=== PATIENT | female | born 1955 | race Caucasian/White ===

== ENCOUNTER → 2020-11-26 07:40 | Outpatient (CLI) | payer OTHER, SELFPAY ==
--- NOTE | 2020-11-26 07:43 | DI.NM.S_ITS ---
PROCEDURE: NM ELENA PERF SPECT REST & STR Rest and exercise myocardial perfusion SPECT with gated imaging and ejection fraction RADIOPHARMACEUTICAL: 10.4 mCi Tc-99m sestamibi IV at rest and 27.5 mCi Tc-99m sestamibi IV at peak exercise. A [id number] was performed. INDICATIONS: Chest pain, unspecified TECHNIQUE: Radiopharmaceutical was injected at peak stress test, and also at rest. SPECT images were obtained. SPECT myocardial perfusion images were displayed in short axis, horizontal long axis, and vertical long axis views. Gated images were reviewed using [employer] software. COMPARISON: None. CARDIAC STRESS: A standard Jason treadmill exercise tolerance test was performed by the patient under the supervision of an attending staff. The patient exercised for 10 minutes and 49 seconds; functional aerobic impairment (BRENT) is -61%; 12.8 METS. Hemodynamic data: There is normal blood pressure and heart rate response to exercise stress. Patient achieved 89% of maximum predicted heart rate at peak exercise. Peak blood pressure 220/90. Symptoms: Patient developed 0.5/10 that increased to 1/10 chest pain during exercise. EKG: No diagnostic EKG changes of ischemia; no ectopy. FINDINGS: Raw data: There is good myocardial labeling by radiotracer. No significant motion artifacts. Htsd-yd-kskhc ratio is 0.36 (normal is less than 0.38 for sestamibi tracer, and less than 0.50 for thallium tracer). Left ventricle function: Gated images demonstrate normal left ventricle wall thickening. No segmental wall motion abnormality. No transient ischemic dilation; TID is 0.92 (normal less than 1.3). The left ventricle resting end-diastolic volume is 75 mL. Left ventricle stress ejection fraction is > 75%; normal values are above 45%. Myocardial perfusion: There is a small size, very mild distal anteroapical resting defect that resolves with stress consistent with shifting breast attenuation. No fixed or reversible perfusion defects. IMPRESSION: 1. No evidence of exercise induced ischemia or arrhythmia by myocardial perfusion imaging or ECG criteria. 2. Excellent exercise capacity. 3. Hypertensive response to exercise. Dictated by: Rizwana Begum D.O. on 11/26/2020 at 15:49 Approved by: Rizwana Begum M.D. on 11/26/2020 at 15:56
[2020-11-26 09:10] LABS: COVID19 -Nasal RAPID Negative (Negative)
== END ==
PROVIDERS: Referring Provider Internal Medicine Cardiovascular Disease; Visit Provider Internal Medicine Cardiovascular Disease
DX: R07.9 Chest pain, unspecified (principal); Z20.822 Contact with and (suspected) exposure to COVID-19
CPT/HCPCS: 78452; 87635

== ENCOUNTER → 2023-07-06 08:40 | Outpatient (CLI) | payer MEDICARE, OTHER, SELFPAY ==
[2023-07-06 09:31] LABS: Hematocrit 42.5 % (36-46); Hemoglobin 14.4 g/dL (12.0-16.0); Mean Corpuscular HGB Conc 33.8 % (30-36); Mean Corpuscular Hemoglobin 29.3 PG (26-34); Mean Corpuscular Volume 86.7 fL (80-100); Platelet Count 268 X10^3/uL (150-400); Red Cell Distribution Width 13.3 % (11.6-14.8); White Blood Cell Count 5.6 X10^3/uL (4.5-11.0)
[2023-07-06 14:17] LABS: Alanine Aminotransferase 22 IU/L (<35); Albumin 4.1 g/dL (3.5-5.0); Albumin Globulin Ratio 1.5 (1.0-2.8); Alkaline Phosphatase 52 U/L (38-126); Aspartate Aminotransferase 29 IU/L (14-36); BUN Creatinine Ratio 23.6 (6-22); Bilirubin Total 0.7 mg/dL (0.2-1.3); Blood Urea Nitrogen 17 mg/dL (7-17); Calcium 9.1 mg/dL (8.4-10.2); Carbon Dioxide 32 mmol/L (22-32); Chloride 103 mmol/L (98-107); Cholesterol 239 mg/dL (140-199); Estimated Glomerular Filt Rate > 60 mL/min (>60); Globulin 2.7 g/dL (1.7-4.1); Glucose 105 mg/dL (80-110); HDL Cholesterol 52 mg/dL (40-60); HEMOLYSIS < 15 (0-50); LDL Cholesterol Calculated 166 mg/dL (<100); Potassium 4.5 mmol/L (3.4-5.1); Sodium 138 mmol/L (137-145); Total Protein 6.8 g/dL (6.3-8.2); Triglycerides 106 mg/dL (35-150)
[2023-07-06 15:34] LABS: TSH w/ Reflex to FT4 2.34 uIU/mL (0.47-4.68)
== END ==
PROVIDERS: PCP Registered Nurse Diabetes Educator; Referring Provider Registered Nurse Diabetes Educator; Visit Provider Registered Nurse Diabetes Educator
DX: I10 Essential (primary) hypertension (principal); E78.5 Hyperlipidemia, unspecified
CPT/HCPCS: 36415; 80053; 80061; 84443; 85027

== ENCOUNTER → 2023-07-30 10:15 | Outpatient (CLI) | payer MEDICARE, OTHER, SELFPAY ==
--- NOTE | 2023-07-30 10:17 | DI.RAD.S_ITS ---
PROCEDURE: XR DEXA AXIAL SKELETON INDICATIONS: ASYMPTOMATIC MENOPAUSAL STATE COMPARISON: None. FINDINGS: Lumbar Spine: Bone mineral density 0.836 g/cm2, T score -1.9. Left Hip: Bone mineral density 0.849 g/cm2, T score -0.8. Left Femoral Neck: Bone mineral density 0.666 g/cm2, T score -1.6. Right Hip: Bone mineral density 0.774 g/cm2, T score -1.4. Right Femoral Neck: Bone mineral density 0.671 g/cm2, T score -1.6. Fracture Risk Calculation (when applicable): 10-year fracture risk of a major osteoporotic fracture 9.5% and of a hip fracture 1.1%. (T score greater or equal to -1.0 to: NORMAL) (T score from -1.1 to -2.4: OSTEOPENIA) (T score less than or equal to -2.5: OSTEOPOROSIS) IMPRESSION: Osteopenia. Follow-up guidelines as follows: Osteoporosis: Consider a repeat DEXA and Vertebral Fracture Assessment (VFA) exam in 2 years or sooner if medically necessary, to reassess this patient's status. Osteopenia: Consider a repeat DEXA in 2-3 years to reassess this patient's status, or if there is a new clinical indication. Normal: Consider a repeat DEXA in 5 years or sooner, or if there is a new clinical indication. All treatment decisions require clinical judgment and consideration of individual patient factors, including patient preferences, comorbidities, previous drug use, risk factors not captured in the FRAX model (e.g., frailty, falls, vitamin D deficiency, increased bone turnover, interval significant decline in bone density ) and possible under- or over-estimation of fracture risk by FRAX. In addition, the NOF Guide recommends that FDA-approved medical therapies be considered in postmenopausal women and men age >= 50 years with a: * Hip or vertebral (clinical or morphometric) fracture * T-score of <=-2.5 at the spine or hip * Ten-year fracture probability by FRAX of >= 3% for hip fracture or >=20% for major osteoporotic fracture. People with diagnosed cases of osteoporosis or at high risk for fracture should have regular bone mineral density tests. For patients eligible for Medicare, routine testing is allowed once every 2 years. The testing frequency can be increased to one year for patients who have rapidly progressing disease, those who are receiving or discontinuing medical therapy to restore bone mass, or have additional risk factors. Dictated by: Mode Gilbert M.D. on 07/30/2023 at 17:28 Approved by: Mode Gilbert M.D. on 07/30/2023 at 17:29
== END ==
PROVIDERS: PCP Registered Nurse Diabetes Educator; Referring Provider Registered Nurse Diabetes Educator; Visit Provider Registered Nurse Diabetes Educator
DX: M85.89 Other specified disorders of bone density and structure, multiple sites (principal); Z78.0 Asymptomatic menopausal state
CPT/HCPCS: 77080

== ENCOUNTER → 2024-07-08 07:51 | Outpatient (CLI) | payer MEDICARE, OTHER, SELFPAY ==
[2024-07-08 08:42] LABS: Alanine Aminotransferase 22 IU/L (<35); Albumin 4.2 g/dL (3.5-5.0); Albumin Globulin Ratio 1.8 (1.0-2.8); Alkaline Phosphatase 52 U/L (38-126); Aspartate Aminotransferase 27 IU/L (14-36); BUN Creatinine Ratio 21.9 (6-22); Bilirubin Total 0.6 mg/dL (0.2-1.3); Blood Urea Nitrogen 16 mg/dL (7-17); Calcium 9.6 mg/dL (8.4-10.2); Carbon Dioxide 31 mmol/L (22-32); Chloride 102 mmol/L (98-107); Cholesterol 255 mg/dL (140-199); Estimated Glomerular Filt Rate > 60 mL/min (>60); Globulin 2.3 g/dL (1.7-4.1); Glucose 100 mg/dL (70-99); HDL Cholesterol 61 mg/dL (40-60); HEMOLYSIS < 15 (0-50); LDL Cholesterol Calculated 177 mg/dL (<100); Potassium 4.1 mmol/L (3.4-5.1); Sodium 137 mmol/L (137-145); Total Protein 6.5 g/dL (6.3-8.2); Triglycerides 86 mg/dL (35-150)
== END ==
LOC: LAB 07:52
PROVIDERS: PCP Registered Nurse Diabetes Educator; Referring Provider Registered Nurse Diabetes Educator; Visit Provider Registered Nurse Diabetes Educator
DX: E78.5 Hyperlipidemia, unspecified (principal); I10 Essential (primary) hypertension; R73.01 Impaired fasting glucose; Z78.0 Asymptomatic menopausal state
CPT/HCPCS: 36415; 80053; 80061

== ENCOUNTER → 2024-08-07 11:03 | Outpatient (CLI) | payer MEDICARE, OTHER, SELFPAY ==
--- NOTE | 2024-08-07 11:05 | DI.MG.S_ITS ---
MM screening mammo BI: 08/07/2024. BI-RADS: 2 CLINICAL: 68-year old female for bilateral screening mammogram. Tyrer-Cuzick lifetime risk of 12.8%. No personal or first-degree family history of breast cancer. Current reported family history of breast cancer: maternal grandmother and maternal aunt. The patient had a prior right breast biopsy. PRIOR EXAMS 01/01/2023, 10/30/2019. MAMMOGRAPHY TECHNIQUE: 2D and 3D (tomosynthesis) digital mammographic views obtained, with additional images as needed for full coverage. Current study was also evaluated with a Computer Aided Detection (CAD) system. DENSITY C. The breasts are heterogeneously dense, which may obscure small masses. MAMMOGRAPHY FINDINGS Right: Benign-appearing post-surgical changes noted on the right. There are no suspicious masses, calcifications, or other findings in the breast. Left: No suspicious mass, asymmetry, microcalcification, or other abnormality seen. IMPRESSION: Right * No evidence of malignancy with benign findings. Left * No evidence of malignancy. RECOMMENDATIONS Bilateral * Annual screening mammography. OVERALL ASSESSMENT CATEGORY BI-RADS-2: Benign. The [employer] recommends annual screening mammography beginning at age 40 for women with average risk of breast cancer. ELECTRONICALLY SIGNED: Rohan Brenner M.D. on 08/07/2024 at 03:33:28 PM PT Interpreting Station ID: [id number]
== END ==
LOC: MAMMO 11:04
PROVIDERS: PCP Registered Nurse Diabetes Educator; Referring Provider Registered Nurse Diabetes Educator; Visit Provider Registered Nurse Diabetes Educator
DX: Z12.31 Encounter for screening mammogram for malignant neoplasm of breast (principal); Z80.3 Family history of malignant neoplasm of breast; R92.333 Mammographic heterogeneous density, bilateral breasts
CPT/HCPCS: 77063; 77067

== ENCOUNTER 2025-01-14 08:25 | Emergency (ER) | payer MEDICARE, OTHER, SELFPAY ==
[2025-01-14] VITALS (9 sets, daily range): BP systolic 133–148; BP diastolic 53–83; PULSE 52–59; RESP 12–16; TEMP 36.7–36.9; O2SAT 97–100; BMI 23.2
--- NOTE | 2025-01-14 08:41 | EKG_ITS ---
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
--- NOTE | 2025-01-14 08:44 | DI.RAD.S_ITS ---
PROCEDURE: XR CHEST 1V INDICATIONS: fluttering TECHNIQUE: One view of the chest was acquired. COMPARISON: None. FINDINGS: Surgical changes and devices: None. Lungs and pleura: Lungs are clear. No pleural effusions or pneumothorax. Mediastinum: Mediastinal contours appear normal. Heart size is normal. Bones and chest wall: No suspicious bony lesions. Overlying soft tissues appear unremarkable. IMPRESSION: No acute cardiopulmonary abnormality is seen. Dictated by: Derrick Rodriguez M.D. on 01/14/2025 at 9:09 Approved by: Derrick Rodriguez M.D. on 01/14/2025 at 9:09
--- NOTE | 2025-01-14 08:45 | ED.CHESTPAIN ---
HPI - Chest Pain General Chief Complaint: Arrhythmia/Palpitations Stated Complaint: Heart Fluttering, 2 weeks Time Seen by Provider: 01/14/25 08:43 Source: patient, RN notes reviewed and old records reviewed Mode of arrival: Family Vehicle Limitations: no limitations History of Present Illness HPI narrative: 69-year-old female history of hypertension on Micardis and hydrochlorothiazide who presents with complaint of symptoms of her heart fluttering for the last several weeks. She states she has been told she had an irregular heartbeat but not atrial fibrillation in the past. She states she would occasionally feel an extra beat but it has become more persistent. She noticed it more at rest. She states she works out regularly does [employer] has not noticed any difficulty or change during exercise. She notes a little bit of left-sided chest discomfort but states it is worse when she pushes on her chest. She states nothing seems to make her symptoms better or worse. She denies any lightheadedness. She describes possibly some slight fatigue. She denies any nausea or vomiting. No diaphoresis. No other GI or urinary symptoms. No swelling of her extremities. Patient states she tried to set up an appointment with her physician and was directed to the emergency department. She states Micardis and hydrochlorothiazide or her only daily medications she has has a stress test in the past but no other cardiac workup. She has not had any prior surgeries. No tobacco, occasional alcohol, no recreational drugs. Her primary care is Mo Castillo. Related Data Home Medications ?Medication ?Instructions ?Recorded ?Confirmed cholecalciferol (vitamin D3) 50 50 mcg PO DAILY 05/08/23 09/02/24 mcg (2,000 unit) capsule cyanocobalamin (vitamin B-12) 2,500 mcg PO DAILY 05/08/23 09/02/24 2,500 mcg tablet jackie root extract 50 mg tablet mg PO 05/08/23 09/02/24 glucosamine HCl 1,500 mg tablet 1,500 mg PO DAILY 05/08/23 09/02/24 magnesium 250 mg tablet 250 mg PO DAILY 05/08/23 09/02/24 nut.tx.impaired digest fxn 0.09 ea PO 05/08/23 09/02/24 gram-1 kcal/mL oral liquid (Vital High Protein) psyllium husk 0.4 gram capsule 0.4 g PO DAILY 05/08/23 09/02/24 (Daily Fiber) cyclosporine 0.05 % eye drops in a drp EYE-BOTH ONCE PRN 07/15/24 09/02/24 dropperette sodium chloride 5 % eye ointment EYE-BOTH 08/28/24 09/02/24 Previous Rx's ?Medication ?Instructions ?Recorded meclizine 25 mg tablet 25 mg PO TID PRN motion sickness 07/17/23 #30 tabs hydrochlorothiazide 25 mg tablet 25 mg PO DAILY #90 tabs 07/15/24 telmisartan 20 mg tablet 20 mg PO DAILY #90 tabs 07/15/24 clobetasol-emollient 0.05 % 1 applic topical BID 2 weeks #60 08/28/24 topical cream grams Allergies Allergy/AdvReac Type Severity Reaction Status Date / Time No Known Drug Allergies Allergy Unverified 09/02/24 11:09 Review of Systems Review of Systems ROS Unobtainable: All systems reviewed & are unremarkable except as noted in HPI and below Patient History Medical History Osteopenia of multiple sites Impaired fasting blood sugar Systolic murmur Chronic back pain Mumps Measles Chicken pox Hiatal hernia Gastritis Gluten enteropathy GERD (gastroesophageal reflux disease) Fibroid Sleep apnea Dyslipidemia Essential hypertension Surgical History History of lumpectomy (~1975) Family History Father Cancer Hypertension Hyperlipidemia Mental health problem Mother History of heart disease Sister Cancer Exam Narrative Exam Narrative: GENERAL: Alert and oriented x three, female in mild distress HEENT: Head normocephalic, atraumatic, EOMI, pupils reactive, face symmetric, moist mucous membranes NECK: Supple, full range of motion CARDIOVASCULAR: Regular rate and rhythm without murmurs, rubs or gallops. No JVD. No edema bilateral lower extremities. RESPIRATORY: Breath sounds equal bilaterally, no wheezes rales or rhonchi. No tachypnea or accessory muscle use ABDOMEN: Soft, nontender. Normoactive bowel sounds all 4 quadrants. No guarding or rebound, rigidity, no mass : No CVA tenderness EXTREMITIES: Normal range of motion, no clubbing or edema. Neurovascularly intact. Normal gait. Ambulates without any issue. NEUROLOGICAL: Cranial nerves II through XII grossly intact. Moving all extremities SKIN: Warm, dry, no petechiae, no rashes or lesions. Initial Vital Signs Initial Vital Signs: Vital Signs Pulse Rate 59 L 01/14/25 08:38 Pulse Oximetry 100 01/14/25 08:38 Course Orders Ordered: ED Orders 01/14/25 08:42 Complete Blood Count AUTO DIFF Stat Comprehensive Metabolic Panel Stat Lipase Stat Magnesium Stat NT-proBNP (BNP-Adult 18+) Stat Troponin I Stat 01/14/25 08:44 XR chest 1V Stat EKG-12 Lead Stat Vital Signs Vital signs: Vital Signs - 8 hr 01/14/25 08:38 01/14/25 08:39 01/14/25 08:39 Temperature Pulse Rate 59 L 59 L Respiratory Rate Blood Pressure 148/83 H Pulse Oximetry 100 100 Oxygen Delivery Method 01/14/25 08:45 Temperature 98.4 F Pulse Rate 53 L Respiratory Rate 16 Blood Pressure 148/53 H Pulse Oximetry 99 Oxygen Delivery Method Room Air MDM - Chest Pain Lab Data 01/14/25 08:42 01/14/25 08:42 Labs: Lab Results 01/14/25 Range/Units 08:42 WBC 6.3 (4.5-11.0) X10^3/uL RBC 4.67 (4.0-5.2) X10^6/uL Hgb 13.8 (12.0-16.0) g/dL Hct 40.3 (36-46) % MCV 86.3 (80-100) fL MCH 29.6 (26-34) PG MCHC 34.3 (30-36) % RDW 13.5 (11.6-14.8) % Plt Count 262 (150-400) X10^3/uL Neut % (Auto) 46.0 L (50-75) % Lymph % (Auto) 40.1 H (25-40) % [place] % (Auto) 7.7 (3-14) % Eos % (Auto) 5.4 H (2-4) % Baso % (Auto) 0.8 (0-2) % Neut # (Auto) 2900 (2989-5332) /uL Lymph # (Auto) 2500 (8529-3636) /uL [place] # (Auto) 500 (0-900) /uL Eos # (Auto) 300 (0-450) /uL Baso # (Auto) 0 (0-100) /uL Sodium 140 (137-145) mmol/L Potassium 4.3 (3.4-5.1) mmol/L Chloride 106 (98-107) mmol/L Carbon Dioxide 25 (22-32) mmol/L BUN 14 (7-17) mg/dL Creatinine 0.72 (0.52-1.04) mg/dL Estimated GFR > 60 (>60) mL/min BUN/Creatinine Ratio 19.4 (6-22) Glucose 104 H (70-99) mg/dL Calcium 9.3 (8.4-10.2) mg/dL Magnesium 2.0 (1.6-2.3) mg/dL Total Bilirubin 0.8 (0.2-1.3) mg/dL AST 26 (14-36) IU/L ALT 18 (<35) IU/L Alkaline Phosphatase 52 (38-126) U/L Troponin I < 0.012 (0.01-0.034) ng/mL NT-Pro-B Natriuret Pep 65 (<125) pg/mL Total Protein 7.3 (6.3-8.2) g/dL Albumin 4.4 (3.5-5.0) g/dL Globulin 2.9 (1.7-4.1) g/dL Albumin/Globulin Ratio 1.5 (1.0-2.8) Lipase 65 (23-300) U/L ECG Data Attestation: I personally reviewed and interpreted this ECG as follows: Prior ECG tracings: not available for review Interpretation: Sinus bradycardia with premature supraventricular complexes rate of 57 NV 152 QRS of 90 QTC of 416, no acute ST-elevation depression appreciated. No prior EKG available. [facility] Narrative Medical decision making narrative: EKG shows sinus bradycardia with premature supraventricular complexes. Labs show normal white count, hemoglobin and platelets, predominance of lymphocytes. Chemistries are appropriate BUN and creatinine normal glucose is 104 troponins less than 0.012 with a BNP of 65. LFTs are normal. Chest x-ray shows no acute cardiopulmonary abnormality. 69-year-old female presents with a complaint of fluttering in her chest she does have supraventricular complexes but has not had any arrhythmias here in the department she has been noticing it pretty persistently for a couple of weeks. Patient felt appropriate for discharge home but with return precautions. Discharge Plan Departure Patient Disposition: Home Clinical Impression: Palpitations Instructions: Premature Ventricular Beats Activity Restrictions/Additional Instructions: Your workup today does show occasional supraventricular complexes but no other arrhythmias. I would recommend follow up with your primary care physician if it is persistent they may wish to have you follow up with a ZIO patch or a cafeteria monitor for a longer period of time. Please return if you have new or worsening symptoms, any new chest pain, new shortness of breath, lightheadedness or passing out, new swelling of your extremities, persistent vomiting or any other new or concerning changes. Prescriptions: No Action glucosamine HCl 1,500 mg tablet 1,500 mg PO DAILY Rx Instructions: administer with a meal jackie root extract 50 mg tablet PO cholecalciferol (vitamin D3) 50 mcg (2,000 unit) capsule 50 mcg PO DAILY cyanocobalamin (vitamin B-12) 2,500 mcg tablet 2,500 mcg PO DAILY magnesium 250 mg tablet 250 mg PO DAILY psyllium husk [Daily Fiber] 0.4 gram capsule 0.4 g PO DAILY Vital High Protein 0.09 gram- 1 kcal/mL liquid PO meclizine 25 mg tablet 25 mg PO TID PRN (Reason: motion sickness) Qty: 30 2RF sodium chloride 5 % ointment EYE-BOTH Patient Comments: [NO ORIGINAL SIG] clobetasol-emollient 0.05 % cream 1 applic topical BID 14 Days Qty: 60 1RF Rx Instructions: Use on affected areas once or twice daily as needed for rash. Do not use longer than 2 weeks. cyclosporine 0.05 % dropperette EYE-BOTH ONCE PRN hydrochlorothiazide 25 mg tablet 25 mg PO DAILY Qty: 90 3RF telmisartan 20 mg tablet 20 mg PO DAILY Qty: 90 3RF Referrals: Mo Castillo ARNP [Primary Care Provider, Medical] Stand Alone Forms: Patient Portal/API
[2025-01-14 08:49] LABS: Add Manual Diff / Slide Review NO; Hematocrit 40.3 % (36-46); Hemoglobin 13.8 g/dL (12.0-16.0); Lymphocytes Absolute Auto 2500 /uL (1100-4500); Mean Corpuscular HGB Conc 34.3 % (30-36); Mean Corpuscular Hemoglobin 29.6 PG (26-34); Mean Corpuscular Volume 86.3 fL (80-100); Platelet Count 262 X10^3/uL (150-400)
[2025-01-14 09:05] LABS: Alanine Aminotransferase 18 IU/L (<35); Albumin 4.4 g/dL (3.5-5.0); Albumin Globulin Ratio 1.5 (1.0-2.8); Alkaline Phosphatase 52 U/L (38-126); Blood Urea Nitrogen 14 mg/dL (7-17); Calcium 9.3 mg/dL (8.4-10.2); Carbon Dioxide 25 mmol/L (22-32); Chloride 106 mmol/L (98-107); Estimated Glomerular Filt Rate > 60 mL/min (>60); Globulin 2.9 g/dL (1.7-4.1); Glucose 104 mg/dL (70-99); HEMOLYSIS < 15 (0-50); Lipase 65 U/L (23-300); Magnesium 2.0 mg/dL (1.6-2.3); Potassium 4.3 mmol/L (3.4-5.1); Sodium 140 mmol/L (137-145); Total Protein 7.3 g/dL (6.3-8.2)
[2025-01-14 09:17] LABS: NT-proBNP (BNP-Adult 18+) 65 pg/mL (<125); Troponin I < 0.012 ng/mL (0.01-0.034)
== END 2025-01-14 10:47 | disposition home or self-care (01) ==
PROVIDERS: Emergency Provider Emergency Medicine; PCP Registered Nurse Diabetes Educator
DX: R00.2 Palpitations (principal); R00.1 Bradycardia, unspecified; R94.31 Abnormal electrocardiogram [ECG] [EKG]; I10 Essential (primary) hypertension
CPT/HCPCS: 36415; 71045; 80053; 83690; 83735; 83880; 84484; 85025; 93005; 99283; 99284